=== PATIENT | female | born 1950 | race Caucasian/White ===

== ENCOUNTER 2020-05-01 00:01 | Inpatient (IN) ==
[2020-05-01] MEDS ORDERED: ONDANSETRON 8 MG TAB.RAPDIS PO PRN (07:46)
[2020-05-01] MEDS ORDERED: FLU VACC QS2020-21(6MOS UP)/PF 60 MCG/0.5 ML SYRINGE IM ONE (10:00)
[2020-05-01] MEDS ORDERED: NITROGLYCERIN 0.4 MG/TAB BTL SL PRN (10:06)
[2020-05-01] MEDS ORDERED: PSYLLIUM SEED 1 PACKET PACKET PO PRN (10:06)
[2020-05-01] MEDS ORDERED: DEXAMETHASONE 4 MG TABLET PO SCH (10:30)
[2020-05-01] MEDS: ASPIRIN 81 MG TABLET.DR PO SCH (11:24)
[2020-05-01] MEDS: ENOXAPARIN SODIUM 40 MG/0.4 ML SYRG SC SCH (11:24)
[2020-05-01] MEDS: LOSARTAN POTASSIUM 50 MG TABLET PO SCH (11:24)
[2020-05-01] MEDS: INSULIN GLARGINE,HUM.REC.ANLOG 100 UNITS/ML VIAL SC SCH (11:30)
[2020-05-01] MEDS: INSULIN LISPRO 100 UNITS/ML VIAL SC SCH ×2 (12:06→17:29)
[2020-05-01] MEDS: NADOLOL 40 MG TABLET PO SCH ×2 (12:06→22:09)
[2020-05-01] MEDS: GABAPENTIN 300 MG CAPSULE PO SCH ×2 (12:35→17:28)
[2020-05-01] MEDS: HYDROCORTISONE ACETATE 25 MG SUPP.RECT RC SCH ×2 (13:48→17:27)
[2020-05-01] MEDS: metFORMIN HCL 500 MG TABLET PO SCH (17:27)
--- NOTE | 2020-05-01 18:25 | HP ---
Chief Complaint - Chief Complaint Date of Service: 05/01/20 Time of Service: 08:40 Chief Complaint: Cough, shortness of breath, fever with chills History of Present Illness: This is a 69-year-old female patient who presented with difficulty breathing and respiratory problems onset 7 days prior to arrival. She has been fluctuating in intensity of illness during the week. Activity and lying flat aggravates her shortness of breath. It is relieved with proper positioning and rest. She has past medical history of coronary disease, type 2 diabetes mellitus, essential hypertension. She does not have any chronic lung disease and does not smoke and has not been a smoker in the past. She is an insulin- dependent diabetic. She uses wearable technology to monitor her blood sugars. She is not wearing an insulin pump at this time. Medical History (Last Updated 05/01/20 @ 00:43 by Celena Zarco RN) Benign hypertension CAD (coronary artery disease) Cataract Cystocele Diabetes mellitus type 2 in obese Familial hyperlipidemia H/O cardiovascular stress test 05/2016 Hypoglycemia IBS (irritable bowel syndrome) Leg edema Mixed hyperlipidemia Neuropathy Obesity Peripheral neuropathy Restless leg syndrome Surgical History: Surgical History (Last Updated 05/01/20 @ 00:47 by Celena Zarco RN) H/O colonoscopy 09/20/2012 and 02/10/2018 H/O percutaneous transluminal coronary angioplasty 02/09/18 heart stent x1 H/O: hysterectomy 1984 History of esophagogastroduodenoscopy (EGD) 02/10/2018 History of tonsillectomy and adenoidectomy Family History: Family History (Last Updated 05/01/20 @ 00:49 by Celena Zarco RN) Mother CVA (cerebral vascular accident) Asthma Father Malignant neoplasm of lung Hepatitis A Social History: (Last Updated 05/01/20 @ 00:51 by Celena Zarco RN) Social History: Marital status: household members: spouse parent marital status: Tobacco: Smoking Status: Former smoker Alcohol: alcohol intake: never Review Of Systems (GEN) - Review of Systems Generalized/Overall Review: Present: Weakness, Chills, Fever, Malaise, Fatigue EENTM: Present: No Symptoms Reported Respiratory: Present: Cough, Shortness of Breath Cardiac: Present: No Symptoms Reported Abdominal: Present: Nausea. Absent: Vomiting Genitourinary: Present: No Symptoms Reported Musculoskeletal: Present: No Symptoms Reported Neurological: Present: Weakness Skin: Present: No Symptoms Reported Endocrine: Present: No Symptoms Reported Allergies/Adverse Reactions: Allergies Allergy/AdvReac Type Severity Reaction Status Date / Time ezetimibe [From Zetia] Allergy Other Verified 05/01/20 00:35 doxycycline AdvReac Verified 05/01/20 00:35 fenofibrate AdvReac Verified 05/01/20 00:35 Qlafage-Sqe-Fad Reductase AdvReac Verified 05/01/20 00:35 Inhibitor Home Medications: HOME MEDICATIONS Aspirin [Aspirin EC] 81 mg PO DAILY 05/01/20 [Last Taken Unknown] Dextrose [Glucose] 16 gm PO PRN PRN 05/01/20 [Last Taken Unknown] Folic Acid 2 mg PO DAILY 05/01/20 [Last Taken Unknown] Furosemide [Lasix] 40 mg PO DAILY 05/01/20 [Last Taken Unknown] Gabapentin 300 mg PO TID 05/01/20 [Last Taken Unknown] Hydrocortisone [Proctosol-Hc] 25 mg RC TID 05/01/20 [Last Taken Unknown] Imipramine HCl [Tofranil] 50 mg PO HS 05/01/20 [Last Taken Unknown] Insulin Degludec [Tresiba Flextouch U-200] 84 unit SQ DAILY 05/01/20 [Last Taken Unknown] Insulin Lispro [Humalog] unit SQ 05/01/20 [Last Taken Unknown] Irbesartan 150 mg PO DAILY 05/01/20 [Last Taken Unknown] Methotrexate Sodium [Methotrexate] 15 mg PO Q7D 05/01/20 [Last Taken Unknown] Nadolol 80 mg PO DAILY 05/01/20 [Last Taken Unknown] Nitroglycerin 0.4 mg SUBLINGUAL Q5MIN PRN 05/01/20 [Last Taken Unknown] Omeprazole 40 mg PO HS 05/01/20 [Last Taken Unknown] Pregabalin [Lyrica] 200 mg PO BID 05/01/20 [Last Taken Unknown] Wheat Dextrin [Benefiber] 1 tbs PO BID PRN 05/01/20 [Last Taken Unknown] metFORMIN HCL [Metformin HCl] 1,000 mg PO BID 05/01/20 [Last Taken Unknown] Exam - Exam Vital Signs: Vital Signs - Last Taken Temp 35.4 C L 05/01/20 17:42 Pulse 66 05/01/20 17:42 Resp 15 05/01/20 17:42 BP 135/74 05/01/20 17:42 Pulse Ox 94 05/01/20 17:42 Constitutional: Present: Alert, Oriented x3, Cooperative, Well developed, Well nourished, Mild distress, Elderly, Obese ENT Exam: Present: normal ENT inspection, hearing grossly normal, pharynx normal, TMs normal Eye Exam: bilateral eye: normal inspection, PERRL, EOMI Neck: Present: non-tender, full range of motion, supple, normal inspection Back Exam: Present: normal inspection, no CVA tenderness, no vertebral tenderness Breasts: Present: Exam deferred Respiratory: Present: chest non-tender, no respiratory distress, no accessory muscle use, crackles, rhonchi, wheezing Cardiovascular/Chest: Present: normal peripheral pulses, regular rate, rhythm, no chest tenderness, no edema, no gallop, no JVD, no murmur, no rub Peripheral Pulses: carotid (R): 2+, carotid (L): 2+, radial (R): 2+, radial (L): 2+ Abdomen: Present: Normal bowel sounds, soft, nontender, nondistended, no rebound tenderness, no hepatospenomegaly, no masses, obese /Rectal: Present: Exam deferred Extremity: Present: normal range of motion Skin Exam: Present: normal color, warm/dry, no cyanosis Lymphatic: Present: no adenopathy Neurologic: Present: saw boss II-XII nml as tested Appearance: Present: appropriate appearance, appropriate insight, neat, no memory impairment Eye contact: Present: cooperative, good eye contact, normal speech Thoughts: Present: normal thought pattern, no apparent hallucination Diagnostic Studies: Abnormal Lab Results 05/01/20 Range/Units 10:36 C-Reactive Prot, Quant 18.6 H (0.0-0.9) mg/dL Laboratory Results C-Reactive Prot, Quant 18.6 mg/dL (0.0-0.9) H 05/01/20 10:36 Assessment/Plan - Narrative Narrative: 1. Dexamethasone 4 mg then progressed to 6 mg tomorrow. 2. Start enoxaparin and change to oral anticoagulant prior to discharge 3. Supportive care 4. Wean off oxygen as able 5. Have her be active in her room as part of her DVT prophylaxis 6. Resume her insulins. - Assessment/Plan (1) COVID-19 virus detected Problem: Acute (2) Dyspnea Problem: Acute (3) Tachypnea Problem: Acute (4) Hypoxemia Problem: Acute (5) Insulin dependent type 2 diabetes mellitus Problem: Acute (6) Pneumonia due to COVID-19 virus Problem: Acute (7) Elevated d-dimer Problem: Acute
[2020-05-01] MEDS: PREGABALIN 50 MG CAPSULE PO SCH (22:09)
[2020-05-01] MEDS: PANTOPRAZOLE SODIUM 40 MG TABLET.EC PO SCH (22:09)
[2020-05-01] MEDS: IMIPRAMINE HCL 25 MG TABLET PO SCH (22:10)
[2020-05-02 06:44] LABS: Hematocrit 35.3 % (37.0-47.0); Hemoglobin 10.9 gm/dL (12.5-16.0); Mean Cell Volume 94.4 fl (78-100); Mean Corpuscular Hemoglobin 29.1 pg (27-31); Mean Corpuscular Hgb Conc 30.9 g/dl (32-36); Mean Platelet Volume 10.9 fl (8-12.5); Neutrophil # 6.2 K/mm3 (1.3-6.0); Neutrophil % 78.1 % (42-75.0); Platelet Count 257 K/mm3 (150-450); Red Blood Count 3.74 M/mm3 (4.2-5.4); Red Cell Distribution Width 15.2 % (11.5-14.0)
[2020-05-02 07:18] LABS: Albumin * 2.7 gm/dl (3.4-5.0); Anion Gap 16.5 mmol/L (6.8-13.8); BUN/Creatinine Ratio 23.1 (9.0-21.6); Bilirubin, Total 0.3 mg/dL (0.0-1.1); Ca. Corrected For Albumin 9.9 mg/dL (8.4-10.2); Calcium * 9.2 mg/dL (7.9-10.9); Carbon Dioxide 23.2 mmol/L (24-32.6); Potassium 3.7 mmol/L (3.4-4.6); Total Protein 7.7 gm/dL (6.2-8.2)
[2020-05-02] MEDS: NADOLOL 40 MG TABLET PO SCH ×2 (08:50→20:51)
[2020-05-02] MEDS: ASPIRIN 81 MG TABLET.DR PO SCH (08:50)
[2020-05-02] MEDS: DEXAMETHASONE 4 MG, DEXAMETHASONE 2 MG PO SCH ×2 (08:51)
[2020-05-02] MEDS: LOSARTAN POTASSIUM 50 MG TABLET PO SCH (08:51)
[2020-05-02] MEDS: metFORMIN HCL 500 MG TABLET PO SCH ×2 (08:52→17:47)
[2020-05-02] MEDS: FUROSEMIDE 40 MG TABLET PO SCH (08:53)
[2020-05-02] MEDS: GABAPENTIN 300 MG CAPSULE PO SCH ×3 (08:53→17:47)
[2020-05-02] MEDS: INSULIN LISPRO 100 UNITS/ML VIAL SC SCH ×3 (09:03→17:51)
[2020-05-02] MEDS: HYDROCORTISONE ACETATE 25 MG SUPP.RECT RC SCH ×3 (10:20→17:47)
[2020-05-02] MEDS: PREGABALIN 50 MG CAPSULE PO SCH ×2 (10:21→20:54)
[2020-05-02] MEDS: ACETAMINOPHEN 325 MG TABLET PO PRN ×2 (10:21→20:53)
[2020-05-02] MEDS: INSULIN GLARGINE,HUM.REC.ANLOG 100 UNITS/ML VIAL SC SCH (10:23)
[2020-05-02] MEDS: ENOXAPARIN SODIUM 40 MG/0.4 ML SYRG SC SCH (10:25)
--- NOTE | 2020-05-02 15:17 | PN ---
Subjective - Date and Time Seen Date: 05/02/20 Time: 12:15 Subjective Narrative: Shana developed fever to 38.8, began tachypnea with breathing rate of 36 breaths/min and became markedly dyspneic with just walking to the bathroom and back. She recovered after resting. She was given acetaminophen 650 mg to lower her temperature and relieve headache. She continues to cough and it remains nonproductive. Her lab this morning shows a white count of 8000 with a slight predominance of neutrophils. Sed rate is 110. Her hemoglobin is 10.8 g. Her examination at the time of my visit shows her to be in no distress. She is sitting in bed eating and breathing without difficulty. Her fever is gone and her headache has been diminished with the acetaminophen. She is feeling quite a bit better than she was earlier in the morning. Auscultation of the chest shows lungs to be clear now. I do not hear any rales or rhonchi that I heard yesterday and there is no wheezing today. She continues to be on 6 mg of dexamethasone p.o. daily. She is on enoxaparin. I will consider changing her to Eliquis tomorrow. The chest x-ray shows cardiomegaly, scattered patchy infiltrates and the largest infiltrate in the right upper lobe. This is her Covid pneumonitis. Objective - Review of Systems Generalized/Overall Review: Reports: Weakness, Chills, Fever, Malaise, Fatigue EENTM: Reports: No Symptoms Reported Respiratory: Reports: Cough, Shortness of Breath Cardiac: Reports: No Symptoms Reported Abdominal: Reports: Nausea - She had nausea yesterday but none today. Genitourinary Symptoms: Reports: No Symptoms Reported Musculoskeletal Complaints: Reports: No Symptoms Reported Neurological: Reports: Headache Skin: Reports: No Symptoms Reported Endocrine: Reports: No Symptoms Reported - Vitals Vitals: Last Vital Signs Temp 36.2 C 05/02/20 13:40 Pulse 78 05/02/20 13:40 Resp 22 H 05/02/20 13:40 BP 112/66 05/02/20 13:40 Pulse Ox 92 L 05/02/20 13:40 - Abnormal Lab Findings Abnormal Lab Findings: Abnormal Lab Results 05/02/20 05/02/20 05/02/20 Range/Units 06:40 06:40 06:40 RBC 3.74 L (4.2-5.4) M/mm3 Hgb 10.9 L (12.5-16.0) gm/dL Hct 35.3 L (37.0-47.0) % MCHC 30.9 L (32-36) g/dl RDW 15.2 H (11.5-14.0) % Immature Gran % (Auto) 1.60 H (0.001-0.429) % Immature Gran # (Auto) 0.13 H (0.000-0.0310) K/mm3 Neutrophils % 78.1 H (42-75.0) % Lymphocytes % 11.0 L (20-51) % Monocytes % 9.2 H (0.0-9) % Neutrophils # 6.2 H (1.3-6.0) K/mm3 Lymphocytes # 0.88 L (1.5-3.5) k/mm3 ESR 110 H (0-15) mm/hr Sodium 143 H (132-142) mmol/L Plasma Sodium 143 H (130-142) mmol/L Chloride 107 H (97-106) mmol/L Carbon Dioxide 23.2 L (24-32.6) mmol/L Anion Gap 16.5 H (6.8-13.8) mmol/L BUN/Creatinine Ratio 23.1 H (9.0-21.6) Random Glucose 113 H (70-110) mg/dL Albumin 2.7 L (3.4-5.0) gm/dl - EKG/Xray Findings XRAY: chest Interpretation: Reviewed by me - Exam Constitutional: Present: Alert, Oriented x3, Cooperative, Well developed, Well nourished, No distress ENT Exam: Present: normal ENT inspection, hearing grossly normal, pharynx normal, TMs normal Neck: Present: non-tender, full range of motion, supple, normal inspection, trachea midline Breasts: Present: Exam deferred Respiratory: Present: chest non-tender, lungs clear, normal breath sounds, no respiratory distress, no accessory muscle use, No wheezing Cardiovascular/Chest: Present: normal peripheral pulses, regular rate, rhythm, no chest tenderness, no edema, no gallop, no JVD, no murmur, no rub Abdomen: Present: Normal bowel sounds, soft, nontender, nondistended, no rebound tenderness, no hepatospenomegaly, no masses, obese /Rectal: Present: Exam deferred Extremity: Present: normal range of motion, non-tender, normal inspection, no pedal edema, no calf tenderness, normal capillary refill Skin Exam: Present: normal color, warm/dry, no cyanosis Lymphatic: Present: no adenopathy Neurologic: Present: stitching department supervisor II-XII nml as tested, normal cerebellar test Appearance: Present: appropriate appearance, appropriate insight, neat, no memory impairment Eye contact: Present: cooperative, good eye contact Thoughts: Present: normal thought pattern, no apparent hallucination Assessment/Plan Plan Narrative: 1. Continue supportive care. 2. Wean O2 as tolerated 3. Continue dexamethasone 4. Start Eliquis tomorrow morning 10 mg twice daily - Problems/Diagnosis (1) COVID-19 virus detected Problem: Acute (2) Dyspnea Problem: Acute Qualifiers: Dyspnea type: dyspnea on exertion Qualified Code(s): R06.00 - Dyspnea, un specified (3) Tachypnea Problem: Acute (4) Hypoxemia Problem: Acute (5) Insulin dependent type 2 diabetes mellitus Problem: Chronic (6) Pneumonia due to COVID-19 virus Problem: Acute (7) Elevated d-dimer Problem: Acute
[2020-05-02] MEDS: IMIPRAMINE HCL 25 MG TABLET PO SCH (20:52)
[2020-05-02] MEDS: APIXABAN 5 MG TABLET PO SCH (20:55)
[2020-05-02] MEDS: PANTOPRAZOLE SODIUM 40 MG TABLET.EC PO SCH (20:56)
[2020-05-03] MEDS: ACETAMINOPHEN 325 MG TABLET PO PRN ×2 (05:24→13:44)
[2020-05-03 06:44] LABS: Hematocrit 32.7 % (37.0-47.0); Hemoglobin 10.1 gm/dL (12.5-16.0); Mean Cell Volume 91.9 fl (78-100); Mean Corpuscular Hemoglobin 28.4 pg (27-31); Mean Corpuscular Hgb Conc 30.9 g/dl (32-36); Mean Platelet Volume 10.7 fl (8-12.5); Neutrophil # 7.5 K/mm3 (1.3-6.0); Neutrophil % 79.7 % (42-75.0); Platelet Count 288 K/mm3 (150-450); Red Blood Count 3.56 M/mm3 (4.2-5.4); Red Cell Distribution Width 15.3 % (11.5-14.0); White Blood Count 9.4 K/mm3 (4.0-10.5)
[2020-05-03 06:51] LABS: Albumin * 2.5 gm/dl (3.4-5.0); Anion Gap 15.6 mmol/L (6.8-13.8); BUN/Creatinine Ratio 26.7 (9.0-21.6); Bilirubin, Total 0.5 mg/dL (0.0-1.1); Ca. Corrected For Albumin 9.9 mg/dL (8.4-10.2); Carbon Dioxide 24.6 mmol/L (24-32.6); Potassium 3.2 mmol/L (3.4-4.6); Total Protein 7.2 gm/dL (6.2-8.2)
[2020-05-03] MEDS: INSULIN LISPRO 100 UNITS/ML VIAL SC SCH ×3 (07:10→17:19)
[2020-05-03] MEDS: ASPIRIN 81 MG TABLET.DR PO SCH (09:20)
[2020-05-03] MEDS: HYDROCORTISONE ACETATE 25 MG SUPP.RECT RC SCH ×3 (09:20→17:21)
[2020-05-03] MEDS: NADOLOL 40 MG TABLET PO SCH ×2 (09:21→21:27)
[2020-05-03] MEDS: LOSARTAN POTASSIUM 50 MG TABLET PO SCH (09:21)
[2020-05-03] MEDS: DEXAMETHASONE 4 MG, DEXAMETHASONE 2 MG PO SCH ×2 (09:21)
[2020-05-03] MEDS: APIXABAN 5 MG TABLET PO SCH (09:22)
[2020-05-03] MEDS: metFORMIN HCL 500 MG TABLET PO SCH ×2 (09:22→17:14)
[2020-05-03] MEDS: PREGABALIN 50 MG CAPSULE PO SCH ×2 (09:23→21:28)
[2020-05-03] MEDS: FUROSEMIDE 40 MG TABLET PO SCH (09:23)
[2020-05-03] MEDS: GABAPENTIN 300 MG CAPSULE PO SCH ×3 (09:23→17:14)
[2020-05-03] MEDS: INSULIN GLARGINE,HUM.REC.ANLOG 100 UNITS/ML VIAL SC SCH (09:32)
--- NOTE | 2020-05-03 13:38 | PN ---
Subjective - Date and Time Seen Date: 05/03/20 Time: 11:15 Subjective Narrative: Tamara has had an uneventful night. She does get very dyspneic which is transferring from bed to bedside commode. I witnessed this morning that after getting back into bed from being on the commode her oxygen saturation had dropped to 73%. I watched her for about 5 minutes before recovered back up into the low 90% range. All of this on 2 L nasal cannula O2. Her morning lab cont inues to show marked elevation of the sed rate. She continues to have some scattered rales. I do not hear any wheezing. Her color when her O2 sat was in the low 70s was a little ashen colored but pinked up as her O2 sat improved. She has not had any more fever or chills. Objective - Review of Systems Generalized/Overall Review: Reports: Weakness, Malaise. Denies: Chills, Fever EENTM: Reports: No Symptoms Reported Respiratory: Reports: Cough, Shortness of Breath Cardiac: Reports: No Symptoms Reported Abdominal: Reports: No Symptoms Reported Genitourinary Symptoms: Reports: No Symptoms Reported Musculoskeletal Complaints: Reports: No Symptoms Reported Neurological: Reports: No Symptoms Reported Skin: Reports: No Symptoms Reported Endocrine: Reports: No Symptoms Reported - Vitals Vitals: Last Vital Signs Temp 37.2 C 05/03/20 07:40 Pulse 80 05/03/20 09:23 Resp 26 H 05/03/20 07:40 BP 131/74 05/03/20 09:23 Pulse Ox 93 05/03/20 07:40 - Abnormal Lab Findings Abnormal Lab Findings: Abnormal Lab Results 05/03/20 05/03/20 Range/Units 06:36 06:36 RBC 3.56 L (4.2-5.4) M/mm3 Hgb 10.1 L (12.5-16.0) gm/dL Hct 32.7 L (37.0-47.0) % MCHC 30.9 L (32-36) g/dl RDW 15.3 H (11.5-14.0) % Immature Gran % (Auto) 1.50 H (0.001-0.429) % Immature Gran # (Auto) 0.14 H (0.000-0.0310) K/mm3 Neutrophils % 79.7 H (42-75.0) % Lymphocytes % 11.3 L (20-51) % Neutrophils # 7.5 H (1.3-6.0) K/mm3 Lymphocytes # 1.06 L (1.5-3.5) k/mm3 Potassium 3.2 L (3.4-4.6) mmol/L Anion Gap 15.6 H (6.8-13.8) mmol/L BUN/Creatinine Ratio 26.7 H (9.0-21.6) Albumin 2.5 L (3.4-5.0) gm/dl - EKG/Xray Findings EKG: NSR, other - Bradycardia EKG read: Interp. by me XRAY: chest Interpretation: Reviewed by me - Exam Constitutional: Present: Alert, Oriented x3, Cooperative ENT Exam: Present: normal ENT inspection, hearing grossly normal, pharynx normal, TMs normal Neck: Present: non-tender, full range of motion, supple, normal inspection Respiratory: Present: chest non-tender, rales Cardiovascular/Chest: Present: normal peripheral pulses, regular rate, rhythm, no chest tenderness, no edema, no gallop, no JVD, no murmur, no rub Abdomen: Present: Normal bowel sounds, soft, nontender, nondistended, no rebound tenderness, no hepatospenomegaly, no masses /Rectal: Present: Exam deferred Extremity: Present: normal range of motion, non-tender, normal inspection, no pedal edema, no calf tenderness, normal capillary refill Skin Exam: Present: normal color Lymphatic: Present: no adenopathy Neurologic: Present: log sorting supervisor II-XII nml as tested Appearance: Present: appropriate appearance, appropriate insight, neat, no memory impairment Eye contact: Present: cooperative, good eye contact, normal speech Thoughts: Present: normal thought pattern, no apparent hallucination Assessment/Plan Plan Narrative: 1. Continue dexamethasone 6 mg p.o. 2. Repeat D-dimer 3. Continue enoxaparin 40 mg subcu daily and DC Eliquis - Problems/Diagnosis (1) COVID-19 virus detected Problem: Acute (2) Dyspnea Problem: Acute Qualifiers: Dyspnea type: dyspnea on exertion Qualified Code(s): R06.00 - Dyspnea, unspecified (3) Tachypnea Problem: Acute (4) Hypoxemia Problem: Acute (5) Insulin dependent type 2 diabetes mellitus Problem: Chronic (6) Pneumonia due to COVID-19 virus Problem: Acute (7) Elevated d-dimer Problem: Acute
[2020-05-03] MEDS ORDERED: ENOXAPARIN SODIUM 40 MG/0.4 ML SYRG SC SCH (13:45)
[2020-05-03] MEDS: ENOXAPARIN SODIUM 40 MG/0.4 ML SYRG SC SCH (21:28)
[2020-05-03] MEDS: IMIPRAMINE HCL 25 MG TABLET PO SCH (21:28)
[2020-05-03] MEDS: PANTOPRAZOLE SODIUM 40 MG TABLET.EC PO SCH (21:29)
[2020-05-04] MEDS: ACETAMINOPHEN 325 MG TABLET PO PRN (07:44)
[2020-05-04] MEDS: INSULIN LISPRO 100 UNITS/ML VIAL SC SCH ×3 (07:53→16:43)
[2020-05-04] MEDS ORDERED: DEXAMETHASONE 4 MG TABLET ONE (08:32)
[2020-05-04] MEDS ORDERED: DEXAMETHASONE 2 MG TABLET ONE (08:32)
[2020-05-04] MEDS: INSULIN GLARGINE,HUM.REC.ANLOG 100 UNITS/ML VIAL SC SCH (08:38)
[2020-05-04] MEDS: NADOLOL 40 MG TABLET PO SCH ×2 (08:40→20:20)
[2020-05-04] MEDS: ASPIRIN 81 MG TABLET.DR PO SCH (08:41)
[2020-05-04] MEDS: metFORMIN HCL 500 MG TABLET PO SCH ×2 (08:41→16:22)
[2020-05-04] MEDS: LOSARTAN POTASSIUM 50 MG TABLET PO SCH (08:41)
[2020-05-04] MEDS: GABAPENTIN 300 MG CAPSULE PO SCH ×3 (08:41→16:22)
[2020-05-04] MEDS: FUROSEMIDE 40 MG TABLET PO SCH (08:41)
[2020-05-04] MEDS: PREGABALIN 50 MG CAPSULE PO SCH ×2 (08:42→20:20)
[2020-05-04] MEDS: DEXAMETHASONE 4 MG, DEXAMETHASONE 2 MG PO SCH ×2 (08:42)
[2020-05-04] MEDS: HYDROCORTISONE ACETATE 25 MG SUPP.RECT RC SCH ×3 (08:43→16:22)
--- NOTE | 2020-05-04 16:54 | PN ---
Subjective - Date and Time Seen Date: 05/04/20 Time: 16:46 Subjective Narrative: Shana is shown some improvement today. She is not D satting and going from bed to bedside commode like she was yesterday. Yesterday she dropped to 73% with a respiratory rate of about 40 and today I witnessed that that her oxygen level was 91-93 when she got back to bed and her respiratory rate was in the mid to upper 20s. She is still on 1-1/2 L nasal cannula O2. Her D-dimer came back at 1.64 which is up from the 1.16 done at [facility] 3 days ago. She is on enoxaparin. The steroids seem to be working. Anticipate she will be here through the weekend. Other lab: White count was 9400 with a fairly normal differential. Hemoglobin is 10.1 g. Sodium is 143 and potassium 3.2. The anion gap is nearly normal now at 15.6 and is down from 16.5. Fasting blood sugar this morning was 73. She is on a low range sliding scale with mealtime insulin and it has not been used today. Blood sugars have been 175, 81, 108, and 180 this evening. I am impressed with her interval improvement since yesterday but I anticipate she will be here through the weekend. Objective - Review of Systems Generalized/Overall Review: Reports: Weakness. Denies: Chills, Fever EENTM: Reports: No Symptoms Reported Respiratory: Reports: Cough, Shortness of Breath Cardiac: Reports: No Symptoms Reported Abdominal: Reports: No Symptoms Reported. Denies: Nausea, Vomiting Genitourinary Symptoms: Reports: No Symptoms Reported Musculoskeletal Complaints: Reports: No Symptoms Reported Neurological: Reports: No Symptoms Reported Skin: Reports: No Symptoms Reported Endocrine: Reports: No Symptoms Reported - Vitals Vitals: Last Vital Signs Temp 36.4 C 05/04/20 13:32 Pulse 67 05/04/20 13:32 Resp 18 05/04/20 13:32 BP 117/64 05/04/20 13:32 Pulse Ox 99 05/04/20 13:32 - Abnormal Lab Findings Abnormal Lab Findings: Abnormal Lab Results 05/04/20 Range/Units 09:00 D-Dimer 1.64 H (0.19-0.49) ug/mL - Exam Constitutional: Present: Alert, Oriented x3, Cooperative, Well developed, Well nourished, No distress ENT Exam: Present: normal ENT inspection, hearing grossly normal, pharynx normal, TMs normal Neck: Present: non-tender, full range of motion, supple, normal inspection Breasts: Present: Exam deferred, Nontender Respiratory: Present: chest non-tender, crackles - Right upper lobe. The left lung seems clear to me. Repeat chest x-ray shows stable bilateral infiltrates consistent with her Covid 19 pneumonia. Breath sounds are significantly improved to me today. She is definitely moving more air. Cardiovascular/Chest: Present: normal peripheral pulses, regular rate, rhythm, no chest tenderness, no edema, no gallop, no JVD, no murmur, no rub Abdomen: Present: Normal bowel sounds, soft, nontender, nondistended, no rebound tenderness, no hepatospenomegaly, no masses, obese /Rectal: Present: Exam deferred Extremity: Present: normal range of motion, non-tender, normal inspection, no pedal edema, no calf tenderness, normal capillary refill Skin Exam: Present: normal color, warm/dry, no cyanosis Lymphatic: Present: no adenopathy Neurologic: Present: injection molding process technician II-XII nml as tested, normal cerebellar test, no motor/sensory deficits, alert, normal mood/affect, oriented x 3 Appearance: Present: appropriate appearance, appropriate insight, neat, no memory impairment Eye contact: Present: cooperative, good eye contact, normal speech Thoughts: Present: normal thought pattern, no apparent hallucination Assessment/Plan Plan Narrative: 1. CBC and CMP tomorrow 2. Continue to try to wean from oxygen through the weekend 3. Dr. Banegas to manage in my absence this weekend 4. CBC, CMP, D-dimer, sed rate, repeat chest x-ray on Thursday morning - Problems/Diagnosis (1) Pneumonia due to COVID-19 virus Problem: Acute (2) COVID-19 virus detected Problem: Acute (3) Dyspnea Problem: Acute Qualifiers: Dyspnea type: dyspnea on exertion Qualified Code(s): R06.00 - Dyspnea, unspecified (4) Tachypnea Problem: Acute (5) Hypoxemia Problem: Acute (6) Insulin dependent type 2 diabetes mellitus Problem: Chronic (7) Elevated d-dimer Problem: Acute
[2020-05-04 18:23] LABS: Urine Bilirubin Negative (NEGATIVE); Urine Blood Negative /ul (NEGATIVE); Urine Ketone Negative (NEGATIVE); Urine Nitrite Negative (NEGATIVE); Urine Protein 15 mg/dL (NEGATIVE); Urine Specific Gravity 1.015 SP.GR. (1.005-1.010); Urine Urobilinogen Normal (NORMAL)
[2020-05-04 18:35] LABS: Urine Appearance Clear (CLEAR); Urine Bacteria None Seen; Urine Color Yellow; Urine RBC None Seen /hpf (0-5); Urine WBC None Seen /hpf (0-5)
[2020-05-04] MEDS: IMIPRAMINE HCL 25 MG TABLET PO SCH (20:20)
[2020-05-04] MEDS: ENOXAPARIN SODIUM 40 MG/0.4 ML SYRG SC SCH (20:20)
[2020-05-04] MEDS: PANTOPRAZOLE SODIUM 40 MG TABLET.EC PO SCH (20:20)
[2020-05-05] MEDS: INSULIN LISPRO 100 UNITS/ML VIAL SC SCH ×3 (07:08→16:43)
[2020-05-05] MEDS: DEXAMETHASONE 4 MG, DEXAMETHASONE 2 MG PO SCH ×2 (08:10)
[2020-05-05] MEDS: NADOLOL 40 MG TABLET PO SCH ×2 (08:10→20:04)
[2020-05-05] MEDS: LOSARTAN POTASSIUM 50 MG TABLET PO SCH (08:11)
[2020-05-05] MEDS: FUROSEMIDE 40 MG TABLET PO SCH (08:11)
[2020-05-05] MEDS: GABAPENTIN 300 MG CAPSULE PO SCH ×3 (08:12→16:42)
[2020-05-05] MEDS: ASPIRIN 81 MG TABLET.DR PO SCH (08:12)
[2020-05-05] MEDS: metFORMIN HCL 500 MG TABLET PO SCH ×2 (08:12→16:42)
[2020-05-05] MEDS: INSULIN GLARGINE,HUM.REC.ANLOG 100 UNITS/ML VIAL SC SCH (08:16)
[2020-05-05] MEDS: HYDROCORTISONE ACETATE 25 MG SUPP.RECT RC SCH ×3 (08:17→16:42)
[2020-05-05] MEDS: PREGABALIN 50 MG CAPSULE PO SCH ×2 (08:20→20:04)
--- NOTE | 2020-05-05 12:06 | PN ---
Subjective - Date and Time Seen Date: 05/05/20 Time: 12:06 Subjective Narrative: She continues to require oxygen. Still getting SOB with movement. Doesn't have much of an appetite. Objective - Review of Systems Generalized/Overall Review: Reports: Weakness. Denies: Fever Respiratory: Reports: Cough, Shortness of Breath Cardiac: Denies: Chest Pain Abdominal: Reports: Other - decreased appetite. Denies: Vomiting Genitourinary Symptoms: Reports: No Symptoms Reported Musculoskeletal Complaints: Reports: No Symptoms Reported - Vitals Vitals: Last Vital Signs Temp 35.5 C L 05/05/20 06:58 Pulse 59 L 05/05/20 08:11 Resp 20 05/05/20 06:58 BP 133/62 05/05/20 08:11 Pulse Ox 91 L 05/05/20 06:58 - Abnormal Lab Findings Abnormal Lab Findings: Abnormal Lab Results 05/04/20 Range/Units 17:51 Urine Protein 15 H (NEGATIVE) mg/dL - Exam Constitutional: Present: Alert, Cooperative, Mild distress, Obese Respiratory: Present: no respiratory distress, other - Mild increased work of breathing. On 2 L via nasal canula Cardiovascular/Chest: Present: regular rate, rhythm Abdomen: Present: soft, obese Extremity: Absent: lower extremity edema Eye contact: Present: cooperative, good eye contact Assessment/Plan Plan Narrative: Continue 6 mg daily dexamethasone, and oxygen as needed. She is still considerable SOB with activity. Anticipate DC in greater than 48 hours. - Problems/Diagnosis (1) Pneumonia due to COVID-19 virus Problem: Acute (2) Dyspnea Problem: Acute Qualifiers: Dyspnea type: dyspnea on exertion Qualified Code(s): R06.00 - Dyspnea, unspecified (3) Insulin dependent type 2 diabetes mellitus Problem: Chronic Narrative: Glucose has been in double digits, or low to mid 100's. Continue current regimen. She hasn't needed SSI in 2 days. her insulin requirements may increase as her appetite increases.
[2020-05-05] MEDS: IMIPRAMINE HCL 25 MG TABLET PO SCH (20:04)
[2020-05-05] MEDS: ENOXAPARIN SODIUM 40 MG/0.4 ML SYRG SC SCH (20:04)
[2020-05-05] MEDS: PANTOPRAZOLE SODIUM 40 MG TABLET.EC PO SCH (20:04)
[2020-05-06] MEDS: INSULIN LISPRO 100 UNITS/ML VIAL SC SCH ×3 (07:29→16:49)
[2020-05-06] MEDS: PREGABALIN 50 MG CAPSULE PO SCH ×2 (09:30→20:05)
[2020-05-06] MEDS: DEXAMETHASONE 4 MG, DEXAMETHASONE 2 MG PO SCH ×2 (09:31)
[2020-05-06] MEDS: NADOLOL 40 MG TABLET PO SCH ×2 (09:31→20:04)
[2020-05-06] MEDS: metFORMIN HCL 500 MG TABLET PO SCH ×2 (09:32→16:45)
[2020-05-06] MEDS: LOSARTAN POTASSIUM 50 MG TABLET PO SCH (09:32)
[2020-05-06] MEDS: ASPIRIN 81 MG TABLET.DR PO SCH (09:32)
[2020-05-06] MEDS: FUROSEMIDE 40 MG TABLET PO SCH (09:33)
[2020-05-06] MEDS: HYDROCORTISONE ACETATE 25 MG SUPP.RECT RC SCH ×4 (09:33→16:45)
[2020-05-06] MEDS: INSULIN GLARGINE,HUM.REC.ANLOG 100 UNITS/ML VIAL SC SCH (09:34)
[2020-05-06] MEDS: GABAPENTIN 300 MG CAPSULE PO SCH ×3 (09:35→16:46)
--- NOTE | 2020-05-06 10:53 | PN ---
Subjective - Date and Time Seen Date: 05/06/20 Time: 09:50 Subjective Narrative: She was able to maintain oxygenation on 1 L overnight, but continues to get dyspneic with any activity. Appetite was a little better this morning. Otherwise no new concerns. Objective - Review of Systems Generalized/Overall Review: Denies: Fever Respiratory: Reports: Shortness of Breath Cardiac: Denies: Chest Pain, Edema Abdominal: Reports: No Symptoms Reported Genitourinary Symptoms: Reports: No Symptoms Reported Musculoskeletal Complaints: Reports: No Symptoms Reported - Vitals Vitals: Last Vital Signs Temp 36.1 C 05/06/20 07:23 Pulse 57 L 05/06/20 09:33 Resp 18 05/06/20 07:23 BP 138/67 05/06/20 09:33 Pulse Ox 94 05/06/20 07:23 - Exam Constitutional: Present: Alert, Cooperative, No distress Respiratory: Present: lungs clear, normal breath sounds, other - on 1 L O2 via NC Cardiovascular/Chest: Present: regular rate, rhythm Abdomen: Present: soft, nontender Extremity: Absent: lower extremity edema Eye contact: Present: cooperative, good eye contact Assessment/Plan Plan Narrative: She is slowly recovering. Oxygen requirements are down to 1 L. Attempted to wean off, but her oxygen decreased to the 80s with any exertion. Will wean as able, but she will be here at least 1 more night. Continue dexamethasone. Her blood sugars were in the 70s, so holding Lantus and managing diabetes with sliding scale insulin. Anticipate her insulin requirements will increase as her appetite returns. - Problems/Diagnosis (1) Pneumonia due to COVID-19 virus Problem: Acute (2) Dyspnea Problem: Acute Qualifiers: Dyspnea type: dyspnea on exertion Qualified Code(s): R06.00 - Dyspnea, unspecified (3) Insulin dependent type 2 diabetes mellitus Problem: Chronic
[2020-05-06] MEDS: IMIPRAMINE HCL 25 MG TABLET PO SCH (20:05)
[2020-05-06] MEDS: ENOXAPARIN SODIUM 40 MG/0.4 ML SYRG SC SCH (20:05)
[2020-05-06] MEDS: PANTOPRAZOLE SODIUM 40 MG TABLET.EC PO SCH (20:05)
[2020-05-07 06:29] LABS: Hematocrit 35.3 % (37.0-47.0); Hemoglobin 11.2 gm/dL (12.5-16.0); Mean Cell Volume 90.5 fl (78-100); Mean Corpuscular Hemoglobin 28.7 pg (27-31); Mean Corpuscular Hgb Conc 31.7 g/dl (32-36); Mean Platelet Volume 10.8 fl (8-12.5); Platelet Count 382 K/mm3 (150-450); Red Cell Distribution Width 15.1 % (11.5-14.0); White Blood Count 9.2 K/mm3 (4.0-10.5)
[2020-05-07 06:32] LABS: Total Cells Counted 100
[2020-05-07 06:45] LABS: Albumin * 2.3 gm/dl (3.4-5.0); Anion Gap 15.1 mmol/L (6.8-13.8); Bilirubin, Total 0.4 mg/dL (0.0-1.1); Ca. Corrected For Albumin 9.8 mg/dL (8.4-10.2); Calcium * 8.8 mg/dL (7.9-10.9); Carbon Dioxide 26.7 mmol/L (24-32.6); Potassium 2.8 mmol/L (3.4-4.6)
[2020-05-07 06:50] LABS: Lymphocyte 17 % (20-51); Monocyte 6 % (0-9); Neutrophil 77 % (42-75); Neutrophil # 7.1 K/mm3 (1.3-6.0); Platelet Estimate Normal (NORMAL); RBC Morphology Normal (NORMAL)
[2020-05-07] MEDS: INSULIN LISPRO 100 UNITS/ML VIAL SC SCH ×3 (07:28→17:37)
[2020-05-07] MEDS ORDERED: POTASSIUM CHLORIDE 10 MEQ TABLET.SA PO SCH (09:00)
[2020-05-07] MEDS: LOSARTAN POTASSIUM 50 MG TABLET PO SCH (09:05)
[2020-05-07] MEDS: DEXAMETHASONE 4 MG, DEXAMETHASONE 2 MG PO SCH ×2 (09:05)
[2020-05-07] MEDS: FUROSEMIDE 40 MG TABLET PO SCH (09:05)
[2020-05-07] MEDS: ASPIRIN 81 MG TABLET.DR PO SCH (09:05)
[2020-05-07] MEDS: GABAPENTIN 300 MG CAPSULE PO SCH ×3 (09:05→17:36)
[2020-05-07] MEDS: POTASSIUM CHLORIDE 20 MEQ TABLET.SA PO SCH ×2 (09:06→17:36)
[2020-05-07] MEDS: PREGABALIN 50 MG CAPSULE PO SCH ×2 (09:06→20:38)
[2020-05-07] MEDS: HYDROCORTISONE ACETATE 25 MG SUPP.RECT RC SCH ×3 (09:07→17:35)
[2020-05-07] MEDS: NADOLOL 40 MG TABLET PO SCH ×2 (09:07→20:38)
[2020-05-07] MEDS: INSULIN GLARGINE,HUM.REC.ANLOG 100 UNITS/ML VIAL SC SCH (09:10)
[2020-05-07] MEDS: metFORMIN HCL 500 MG TABLET PO SCH ×2 (09:20→17:47)
--- NOTE | 2020-05-07 13:04 | PN ---
Subjective - Date and Time Seen Date: 05/07/20 Time: 12:51 Subjective Narrative: Shana has made good progress through the weekend. She has had times when she has been on room air and other times when she has had to go back on her oxygen. At rest she is satting in the mid 90s. She still desaturates into the upper 80s and low 90s and transferring from bed to chair. Her lab shows white count is normal and the hemoglobin is 11.2 g. Her D-dimer is elevated at 0.88 but half of what it was on Thursday at 1.64. The sed rate is still high at 109. Her blood sugars are doing very well and in fact the basal insulin was held because of low blood sugar. The chest x-ray continues to show bilateral pulmonary infiltrates but per my read there is significant clearing beginning to occur. There are infiltrates diffusely in both lungs but less opacity is now present. She is moving better air on auscultation. She has crackles in the right lung anteriorly and the posterior left lung. Objective - Review of Systems Generalized/Overall Review: Reports: No Symptoms Reported EENTM: Reports: No Symptoms Reported Respiratory: Reports: No Symptoms Reported Cardiac: Reports: No Symptoms Reported Abdominal: Reports: No Symptoms Reported Genitourinary Symptoms: Reports: No Symptoms Reported Musculoskeletal Complaints: Reports: No Symptoms Reported Neurological: Reports: No Symptoms Reported Skin: Reports: No Symptoms Reported Endocrine: Reports: No Symptoms Reported - Vitals Vitals: Last Vital Signs Temp 36 C 05/07/20 08:15 Pulse 65 05/07/20 09:07 Resp 26 H 05/07/20 08:15 BP 126/67 05/07/20 09:07 Pulse Ox 96 05/07/20 08:15 - Abnormal Lab Findings Abnormal Lab Findings: Abnormal Lab Results 05/07/20 05/07/20 05/07/20 Range/Units 06:25 06:25 06:25 RBC 3.90 L (4.2-5.4) M/mm3 Hgb 11.2 L (12.5-16.0) gm/dL Hct 35.3 L (37.0-47.0) % MCHC 31.7 L (32-36) g/dl RDW 15.1 H (11.5-14.0) % Neutrophils % (Manual) 77 H (42-75) % Lymphocytes % (Manual) 17 L (20-51) % Neutrophils # (Manual) 7.1 H (1.3-6.0) K/mm3 ESR 109 H (0-15) mm/hr D-Dimer 0.88 H (0.19-0.49) ug/mL Potassium (3.4-4.6) mmol/L Anion Gap (6.8-13.8) mmol/L BUN (3-23) mg/dL BUN/Creatinine Ratio (9.0-21.6) Random Glucose (70-110) mg/dL Albumin (3.4-5.0) gm/dl 05/07/20 Range/Units 06:25 RBC (4.2-5.4) M/mm3 Hgb (12.5-16.0) gm/dL Hct (37.0-47.0) % MCHC (32-36) g/dl RDW (11.5-14.0) % Neutrophils % (Manual) (42-75) % Lymphocytes % (Manual) (20-51) % Neutrophils # (Manual) (1.3-6.0) K/mm3 ESR (0-15) mm/hr D-Dimer (0.19-0.49) ug/mL Potassium 2.8 L (3.4-4.6) mmol/L Anion Gap 15.1 H (6.8-13.8) mmol/L BUN 27 H (3-23) mg/dL BUN/Creatinine Ratio 30.0 H (9.0-21.6) Random Glucose 128 H (70-110) mg/dL Albumin 2.3 L (3.4-5.0) gm/dl - EKG/Xray Findings XRAY: chest Interpretation: Reviewed by me - Exam Constitutional: Present: Alert, Oriented x3, Cooperative, Well developed, Well nourished, No distress, Elderly, Obese ENT Exam: Present: normal ENT inspection, hearing grossly normal, pharynx normal, TMs normal Neck: Present: non-tender, full range of motion, supple, normal inspection, trachea midline, limited range of motion Breasts: Present: Exam deferred, Nontender Respiratory: Present: chest non-tender, no respiratory distress - At rest. She does have dyspnea on exertion., no accessory muscle use Cardiovascular/Chest: Present: normal peripheral pulses, regular rate, rhythm, no chest tenderness, no edema, no gallop, no JVD, no murmur, no rub Abdomen: Present: Normal bowel sounds, soft, nontender, nondistended, no rebound tenderness, no hepatospenomegaly, no masses, obese /Rectal: Present: Exam deferred Extremity: Present: normal range of motion, non-tender, normal inspection, no pedal edema, no calf tenderness, normal capillary refill Skin Exam: Present: normal color, warm/dry, no cyanosis Lymphatic: Present: no adenopathy Neurologic: Present: director microbiology II-XII nml as tested, normal cerebellar test, no motor/sensory deficits, alert, normal mood/affect, oriented x 3 Appearance: Present: appropriate appearance, appropriate insight, neat, no memory impairment Eye contact: Present: cooperative, good eye contact, normal speech Thoughts: Present: normal thought pattern, no apparent hallucination Assessment/Plan Plan Narrative: 1. Continue current therapy she is improving now. 2. Anticipate discharge tomorrow or Thursday 3. Hypokalemia. She will receive 40 mEq KCl before supper in addition to the 40 mEq she received this morning. 4. Recheck CBC and CMP tomorrow morning. 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
[2020-05-07] MEDS: ENOXAPARIN SODIUM 40 MG/0.4 ML SYRG SC SCH (20:38)
[2020-05-07] MEDS: IMIPRAMINE HCL 25 MG TABLET PO SCH (20:39)
[2020-05-07] MEDS: PANTOPRAZOLE SODIUM 40 MG TABLET.EC PO SCH (20:39)
[2020-05-08 07:06] LABS: Hematocrit 34.6 % (37.0-47.0); Hemoglobin 10.9 gm/dL (12.5-16.0); Mean Cell Volume 90.8 fl (78-100); Mean Corpuscular Hemoglobin 28.6 pg (27-31); Mean Corpuscular Hgb Conc 31.5 g/dl (32-36); Mean Platelet Volume 10.8 fl (8-12.5); Platelet Count 428 K/mm3 (150-450); Red Blood Count 3.81 M/mm3 (4.2-5.4); Red Cell Distribution Width 15.3 % (11.5-14.0); White Blood Count 8.9 K/mm3 (4.0-10.5)
[2020-05-08 07:13] LABS: Total Cells Counted 100
[2020-05-08 07:16] LABS: Albumin * 2.4 gm/dl (3.4-5.0); Anion Gap 12.9 mmol/L (6.8-13.8); Bilirubin, Total 0.4 mg/dL (0.0-1.1); Carbon Dioxide 26.6 mmol/L (24-32.6); Potassium 3.5 mmol/L (3.4-4.6); Total Protein 7.1 gm/dL (6.2-8.2)
[2020-05-08 07:21] LABS: Hypochromia Trace; Immature Granulocyte 3 (0-1); Lymphocyte 24 % (20-51); Monocyte 11 % (0-9); Neutrophil 62 % (42-75); Neutrophil # 5.5 K/mm3 (1.3-6.0); Platelet Estimate Normal (NORMAL)
[2020-05-08] MEDS: INSULIN LISPRO 100 UNITS/ML VIAL SC SCH ×3 (07:21→17:41)
[2020-05-08 07:22] LABS: Anisocytosis Trace
[2020-05-08] MEDS: INSULIN GLARGINE,HUM.REC.ANLOG 100 UNITS/ML VIAL SC SCH (08:41)
[2020-05-08] MEDS: DEXAMETHASONE 4 MG, DEXAMETHASONE 2 MG PO SCH ×2 (08:43)
[2020-05-08] MEDS: HYDROCORTISONE ACETATE 25 MG SUPP.RECT RC SCH ×4 (08:43→20:29)
[2020-05-08] MEDS: FUROSEMIDE 40 MG TABLET PO SCH (08:44)
[2020-05-08] MEDS: LOSARTAN POTASSIUM 50 MG TABLET PO SCH (08:44)
[2020-05-08] MEDS: ASPIRIN 81 MG TABLET.DR PO SCH (08:44)
[2020-05-08] MEDS: NADOLOL 40 MG TABLET PO SCH ×2 (08:45→20:21)
[2020-05-08] MEDS: PREGABALIN 50 MG CAPSULE PO SCH ×2 (08:46→20:22)
[2020-05-08] MEDS: GABAPENTIN 300 MG CAPSULE PO SCH ×3 (08:46→17:40)
[2020-05-08] MEDS: metFORMIN HCL 500 MG TABLET PO SCH ×2 (08:50→17:40)
[2020-05-08] MEDS: PANTOPRAZOLE SODIUM 40 MG TABLET.EC PO SCH (20:21)
[2020-05-08] MEDS: ENOXAPARIN SODIUM 40 MG/0.4 ML SYRG SC SCH (20:22)
[2020-05-08] MEDS: IMIPRAMINE HCL 25 MG TABLET PO SCH (20:22)
[2020-05-09] MEDS: INSULIN LISPRO 100 UNITS/ML VIAL SC SCH ×2 (07:40→12:04)
[2020-05-09] MEDS: HYDROCORTISONE ACETATE 25 MG SUPP.RECT RC SCH (08:54)
[2020-05-09] MEDS: DEXAMETHASONE 4 MG, DEXAMETHASONE 2 MG PO SCH ×2 (08:54)
[2020-05-09] MEDS: GABAPENTIN 300 MG CAPSULE PO SCH ×2 (08:56→12:05)
[2020-05-09] MEDS: ASPIRIN 81 MG TABLET.DR PO SCH (08:56)
[2020-05-09] MEDS: NADOLOL 40 MG TABLET PO SCH (08:56)
[2020-05-09] MEDS: metFORMIN HCL 500 MG TABLET PO SCH (08:56)
[2020-05-09] MEDS: LOSARTAN POTASSIUM 50 MG TABLET PO SCH (08:56)
[2020-05-09] MEDS: PREGABALIN 50 MG CAPSULE PO SCH (08:56)
[2020-05-09] MEDS: FUROSEMIDE 40 MG TABLET PO SCH (08:57)
[2020-05-09] MEDS: INSULIN GLARGINE,HUM.REC.ANLOG 100 UNITS/ML VIAL SC SCH (08:59)
--- NOTE | 2020-05-09 11:28 | PN ---
Subjective - Date and Time Seen Date: 05/08/20 Time: 12:00 Subjective Narrative: Mrs. Castillo has had a eventful night and that she required oxygen again through the night. She desaturated into the low 80s became quite dyspneic. She was placed on 1-1/2 L nasal cannula O2 and recovered from that and now is back on room air again in and holding in the mid 90s. I have wanted her to be nonoxygen dependent for 24 hours prior to discharge. Otherwise she is doing jeny y well. There have been no other new problems develop. The chest x-ray shows some interval clearing. Breath sounds are improved she still has crackles in the right chest anteriorly. Blood sugars have been doing very well.The D-dimer has basically been cut in half from 1.64-0.88. Objective - Review of Systems Generalized/Overall Review: Reports: Weakness EENTM: Reports: No Symptoms Reported Respiratory: Reports: Shortness of Breath - With walking short distance. Cardiac: Reports: No Symptoms Reported Abdominal: Reports: No Symptoms Reported Genitourinary Symptoms: Reports: No Symptoms Reported Musculoskeletal Complaints: Reports: No Symptoms Reported Neurological: Reports: No Symptoms Reported Skin: Reports: No Symptoms Reported Endocrine: Reports: No Symptoms Reported - Vitals Vitals: Last Vital Signs Temp 36.0 C 05/09/20 09:03 Pulse 66 05/09/20 09:03 Resp 16 05/09/20 09:03 BP 133/69 05/09/20 09:03 Pulse Ox 99 05/09/20 09:03 - EKG/Xray Findings Interpretation: Reviewed by me - Exam Constitutional: Present: Alert, Oriented x3, Cooperative, Well developed, Well nourished, No distress ENT Exam: Present: normal ENT inspection, hearing grossly normal, pharynx normal Neck: Present: non-tender, full range of motion, supple, normal inspection, trachea midline Breasts: Present: Exam deferred Respiratory: Present: crackles, rales - Ivonne Cardiovascular/Chest: Present: normal peripheral pulses - Mando a self yesterday then, regular rate, rhythm, no chest tenderness, no edema, no gallop, no JVD, no murmur, no rub Abdomen: Present: Normal bowel sounds, soft, nontender, nondistended, no rebound tenderness, no hepatospenomegaly, no masses, obese /Rectal: Present: Exam deferred Extremity: Present: normal range of motion, non-tender, normal inspection, no pedal edema, no calf tenderness, normal capillary refill Skin Exam: Present: normal color, warm/dry, no cyanosis Lymphatic: Present: no adenopathy Neurologic: Present: congressional assistant II-XII nml as tested, normal cerebellar test, no motor/sensory deficits, alert, normal mood/affect, oriented x 3 Appearance: Present: appropriate appearance, appropriate insight, neat, no memory impairment Eye contact: Present: cooperative, good eye contact, normal speech Thoughts: Present: normal thought pattern, no apparent hallucination Assessment/Plan Plan Narrative: 1. Continue current therapy and if she does not require oxygen over the next 24 hours then she can be dismissed tomorrow. 2. 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
--- NOTE | 2020-05-09 11:56 | DS ---
(1) Pneumonia due to COVID-19 virus Problem: Acute (2) COVID-19 virus detected Problem: Acute (3) Dyspnea Problem: Acute Qualifiers: Dyspnea type: dyspnea on exertion Qualified Code(s): R06.00 - Dyspnea, un specified (4) Tachypnea Problem: Resolved (5) Hypoxemia Problem: Acute (6) Insulin dependent type 2 diabetes mellitus Problem: Chronic (7) Elevated d-dimer Problem: Acute Date of Discharge:: 05/09/20 Hospital Course: This 69-year-old female was admitted with acute respiratory distress due to COVID-19 pneumonia. She was started on steroids, enoxaparin, and antibiotics for a urinary tract infection. She did not show much progress last week. But from Thursday to Thursday she showed significant improvement only intermittently needing her oxygen. Yesterday she had been off of her oxygen through the day but during the night before last she required oxygen again. Last 24 hours she has not required any oxygen and her O2 saturations have been in the mid 90s. She is able to ambulate to and from the bathroom and still gets dyspneic. She will desaturate into the mid to upper 80s with walking but does not require oxygen to recover. Her D-dimer at [facility] has been 0.99. I rechecked it here 2 days later and it was 1.64 and checked it again yesterday and it was back to 0.88. Her blood sugars initially were elevated but with basal insulin and sliding scale her sugars have been very well controlled. She is starting to feel some better and notes that her breathing is much easier. Her disposition is improved. Her prognosis is good. Procedures Performed: none Plan of Treatment: She will need to self quarantine for another couple of weeks at home. Results and Findings: Lab Pending Results 05/01/20 10:36: C-Reactive Prot, Quant 18.6 H 05/02/20 06:40: WBC 8.0, RBC 3.74 L, Hgb 10.9 L, Hct 35.3 L, MCV 94.4, MCH 29.1, MCHC 30.9 L, RDW 15.2 H, Plt Count 257, MPV 10.9, Immature Gran % (Auto) 1.60 H, Immature Gran # (Auto) 0.13 H, Neutrophils % 78.1 H, Lymphocytes % 11.0 L, Monocytes % 9.2 H, Eosinophils % 0.0, Basophils % 0.1, Nucleated RBC % 0.0, Neutrophils # 6.2 H, Lymphocytes # 0.88 L, Monocytes # 0.7, Eosinophils # 0.0, Absolute Basophils 0.0 05/02/20 06:40: ESR 110 H 05/02/20 06:40: Sodium 143 H, Plasma Sodium 143 H, Potassium 3.7, Chloride 107 H, Carbon Dioxide 23.2 L, Anion Gap 16.5 H, BUN 18, Creatinine 0.78, Est GFR (Non-Af Amer) 77, BUN/Creatinine Ratio 23.1 H, Random Glucose 113 H, Calcium 9.2, Calcium Adj for Albumin 9.9, Total Bilirubin 0.3, AST 44, ALT 60, Alkaline Phosphatase 101, Total Protein 7.7, Albumin 2.7 L 05/03/20 06:36: WBC 9.4, RBC 3.56 L, Hgb 10.1 L, Hct 32.7 L, MCV 91.9, MCH 28.4, MCHC 30.9 L, RDW 15.3 H, Plt Count 288, MPV 10.7, Immature Gran % (Auto) 1.50 H, Immature Gran # (Auto) 0.14 H, Neutrophils % 79.7 H, Lymphocytes % 11.3 L, Monocytes % 7.4, Eosinophils % 0.0, Basophils % 0.1, Nucleated RBC % 0.0, Neutrophils # 7.5 H, Lymphocytes # 1.06 L, Monocytes # 0.7, Eosinophils # 0.0, Absolute Basophils 0.0 05/03/20 06:36: Sodium 142, Plasma Sodium 142, Potassium 3.2 L, Chloride 105, Carbon Dioxide 24.6, Anion Gap 15.6 H, BUN 20, Creatinine 0.75, Est GFR (Non-Af Amer) 81, BUN/Creatinine Ratio 26.7 H, Random Glucose 73 D, Calcium 9.0, Calcium Adj for Albumin 9.9, Total Bilirubin 0.5, AST 41, ALT 55, Alkaline Phosphatase 89, Total Protein 7.2, Albumin 2.5 L 05/04/20 09:00: D-Dimer 1.64 H 05/04/20 17:51: Urine Color Yellow, Urine Appearance Clear, Urine pH 6.0, Ur Specific [place] 1.015, Urine Protein 15 H, Urine Glucose (UA) Negative, Urine Ketones Negative, Urine Blood Negative, Urine Nitrate Negative, Urine Bilirubin Negative, Prot Sulfosalicylic Acd Negative, Urine Urobilinogen Normal, Ur Leukocyte Esterase Negative, Urine RBC None seen, Urine WBC None seen, Ur Epithelial Cells Trace, Urine Bacteria None seen 05/07/20 06:25: ESR 109 H 05/07/20 06:25: D-Dimer 0.88 H 05/07/20 06:25: WBC 9.2, RBC 3.90 L, Hgb 11.2 L, Hct 35.3 L, MCV 90.5, MCH 28.7, MCHC 31.7 L, RDW 15.1 H, Plt Count 382, MPV 10.8, Neutrophils % (Manual) 77 H, Lymphocytes % (Manual) 17 L, Monocytes % (Manual) 6, Neutrophils # (Manual) 7.1 H, Lymphocytes # (Manual) 1.6, Monocytes # (Manual) 0.6, Platelet Estimate Normal, RBC Morphology Normal 05/07/20 06:25: Sodium 140, Plasma Sodium 140, Potassium 2.8 L, Chloride 101, Carbon Dioxide 26.7, Anion Gap 15.1 H, BUN 27 H, Creatinine 0.90, Est GFR (Non- Af Amer) 66, BUN/Creatinine Ratio 30.0 H, Random Glucose 128 H, Calcium 8.8, Calcium Adj for Albumin 9.8, Total Bilirubin 0.4, AST 23, ALT 34, Alkaline Phosphatase 87, Total Protein 7.0, Albumin 2.3 L 05/08/20 06:55: WBC 8.9, RBC 3.81 L, Hgb 10.9 L, Hct 34.6 L, MCV 90.8, MCH 28.6, MCHC 31.5 L, RDW 15.3 H, Plt Count 428, MPV 10.8, Neutrophils % (Manual) 62, Lymphocytes % (Manual) 24, Monocytes % (Manual) 11 H, Immature Granulocytes 3 H, Neutrophils # (Manual) 5.5, Lymphocytes # (Manual) 2.1, Monocytes # (Manual) 1.0, Platelet Estimate Normal, Hypochromasia Trace, Anisocytosis Trace 05/08/20 06:55: Sodium 141, Plasma Sodium 141, Potassium 3.5 D, Chloride 105, Carbon Dioxide 26.6, Anion Gap 12.9, BUN 26 H, Creatinine 0.93, Est GFR (Non-Af Amer) 63, BUN/Creatinine Ratio 28.0 H, Random Glucose 108, Calcium 9.0, Calcium Adj for Albumin 10.0, Total Bilirubin 0.4, AST 20, ALT 32, Alkaline Phosphatase 80, Total Protein 7.1, Albumin 2.4 L Discharge Location: Home Disposition: Home self-care Condition: Good Face to Face Encounter completed per [facility] Guidelines: No Discharge Activity: Activity as tolerated Discharge Diet: Consistent carbs Problem Oriented Discharge Instructions to Patient/Family: COVID-19 Additional Patient Instructions (free text): Take for enteric-coated 81 mg aspirin tablets daily for the next 2 weeks and then reduce to 1 tablet daily thereafter. Complete Home Medications List: Complete Home Medication List: Aspirin [Aspirin EC] 81 mg PO DAILY 05/01/20 Dextrose [Glucose] 16 gm PO PRN PRN 05/01/20 Folic Acid 2 mg PO DAILY 05/01/20 Furosemide [Lasix] 40 mg PO DAILY 05/01/20 Gabapentin 300 mg PO TID 05/01/20 Hydrocortisone [Proctosol-Hc] 25 mg RC TID 05/01/20 Imipramine HCl [Tofranil] 50 mg PO HS 05/01/20 Insulin Degludec [Tresiba Flextouch U-200] 84 unit SQ DAILY 05/01/20 Insulin Lispro [Humalog Kwikpen U-100] unit SQ 05/01/20 Irbesartan 150 mg PO DAILY 05/01/20 Methotrexate Sodium [Methotrexate] 15 mg PO Q7D 05/01/20 Nadolol 80 mg PO DAILY 05/01/20 Nitroglycerin 0.4 mg SUBLINGUAL Q5MIN PRN 05/01/20 Omeprazole 40 mg PO HS 05/01/20 Pregabalin [Lyrica] 200 mg PO BID 05/01/20 Wheat Dextrin [Benefiber] 1 tbs PO BID PRN 05/01/20 metFORMIN HCL [Metformin HCl] 1,000 mg PO BID 05/01/20 Acetaminophen [Tylenol] 650 mg PO Q4H PRN tablet 05/09/20 Dexamethasone 6 mg PO DAILY #7 tablet 05/09/20 Insulin Lispro [Humalog] See Protocol SC ACINS #3 vial 05/09/20 Forms: Patient Portal Registration
[2020-05-09 14:31] VITALS: BP 122/77
== END 2020-05-09 13:55 | disposition home or self-care (01) | DRG 177 ==
LOC: MS 00:01
PROVIDERS: ADMIT Family Medicine; ATTEND Family Medicine